=== PATIENT | female | born 1990 | race African-American/Black ===

== ENCOUNTER 2017-05-07 10:12 | Emergency (ER) | payer OTHER ==
[~2017-05-07] VITALS: Ht 167.6 cm; Wt 81.7 kg
[~2017-05-07 10:12] MED LIST: IBUPROFEN 600600 M1 PO; NOHOMEMEDICATIONS; NORFLEX100 MG PO; ULTRAM 50MG TAB50 MG PO
[2017-05-07 10:34] LABS: URINE BILIRUBIN NEGATIVE (Negative); URINE BLOOD NEGATIVE (Negative); URINE CLARITY CLEAR; URINE COLOR YELLOW; URINE GLUCOSE-RANDOM* NEGATIVE (Negative); URINE KETONES NEGATIVE (Negative); URINE LEUKOCYTES NEGATIVE (Negative); URINE NITRITE NEGATIVE (Negative); URINE PROTEIN (DIPSTICK) 1+ (Negative); URINE SPECIFIC GRAVITY >= 1.030 (1.005-1.035); URINE UROBILINOGEN 0.2 E.U./dl (0.2-1.0)
[2017-05-07 10:56] LABS: SQUAMOUS >10 Many /LPF (0-3)
[2017-05-07 11:00] LABS: CASTS None Seen /LPF (None Seen); CRYSTALS None Seen /LPF (None Seen); URINE WBC 0-5 Rare /HPF (0-5)
[2017-05-07 11:01] LABS: BACTERIA 1-9 Few /HPF (None Seen); URINE RBC None Seen /HPF (0-2)
[2017-05-07] MEDS ORDERED: IBUPROFEN 800800 M1 PO (11:57)
[2017-05-07 12:19] VITALS: BP 120/75
[2017-05-08 14:15] LABS: NEISSERIA GONORRHEA-PCR Negative (Negative)
== END 2017-05-07 12:22 | disposition home or self-care (01) ==
LOC: ER 10:12
PROVIDERS: Nurse Practitioner Family
DX: Z30.431 Encounter for routine checking of intrauterine contraceptive device (principal); R10.2 Pelvic and perineal pain; F17.210 Nicotine dependence, cigarettes, uncomplicated